=== PATIENT | male | born 1970 | race Caucasian/White ===

== ENCOUNTER 2017-04-15 08:22 | Emergency (ER) | payer SELFPAY ==
[2017-04-15] MEDS ORDERED: IPRATROPIUM/ALBUTEROL 0.5-2.5 MG/3 ML AMPUL NEB ONE (09:08)
--- NOTE | 2017-04-15 09:09 | RADIOLOGY REPORT (SQ) ---
EXAM DESCRIPTION: CHEST PA/LAT COMPLETED DATE/TIME: 04/15/2017 8:55 am REASON FOR STUDY: cough COMPARISON: October 2015 EXAM PARAMETERS: NUMBER OF VIEWS: two views TECHNIQUE: Digital Frontal and Lateral radiographic views of the chest acquired. RADIATION DOSE: NA LIMITATIONS: none FINDINGS: LUNGS AND PLEURA: No opacities, masses or pneumothorax. No pleural effusion. MEDIASTINUM AND HILAR STRUCTURES: No masses or contour abnormalities. HEART AND VASCULAR STRUCTURES: Heart normal size. No evidence for failure. BONES: No acute findings. HARDWARE: None in the chest. OTHER: No other significant finding. IMPRESSION: NO SIGNIFICANT RADIOGRAPHIC FINDING IN THE CHEST. TECHNICAL DOCUMENTATION: JOB ID: [id number] [employer]- All Rights Reserved
--- NOTE | 2017-04-15 09:47 | ER Document Report ---
ED General - General Chief Complaint: Congestion Stated Complaint: FLU LIKE SYMPTOMS Time Seen by Provider: 04/15/17 08:33 TRAVEL OUTSIDE OF THE [place] IN LAST 30 DAYS: No - HPI Patient complains to provider of: Cough congestion Notes: Patient is a smoker coming in for cough congestion ongoing for approximately 1 month. Patient states more of a wet cough with minimal production. Denies any fevers chills nausea vomiting patient states shortness of breath treatments of albuterol inhalers at home patient also states been taking [id number] cough medications. Patient upon my evaluation otherwise looks well no signs of any obvious distress. - Related Data Allergies/Adverse Reactions: naproxen [Naproxen] Allergy (Mild, Verified 01/30/15 17:40) itching Past Medical History - Social History Smoking Status: Current Every Day Smoker Chew tobacco use (# tins/day): - 59 Frequency of alcohol use: None Drug Abuse: None Family History: Reviewed & Not Pertinent, Hyperlipidemia, Other - copd Patient has suicidal ideation: No Patient has homicidal ideation: No - Past Medical History Cardiac Medical History: Reports: Hx DVT, Hx Hypercholesterolemia Pulmonary Medical History: Reports: Hx Bronchitis, Hx COPD, Hx Pneumonia Denies: Hx Tuberculosis Renal/ Medical History: Denies: Hx Peritoneal Dialysis Musculoskeltal Medical History: Reports Hx Musculoskeletal Deformity, Reports Hx Musculoskeletal Trauma Psychiatric Medical History: Reports: Hx Bipolar Disorder - mood disorder, Hx Depression Traumatic Medical History: Reports: Hx Fractures - wrist Past Surgical History: Reports: Hx Cholecystectomy - Immunizations Immunizations up to date: Yes Hx Diphtheria, Pertussis, Tetanus Vaccination: Yes Review of Systems - Review of Systems Constitutional: No symptoms reported EENT: No symptoms reported Cardiovascular: No symptoms reported Respiratory: Cough Gastrointestinal: No symptoms reported Genitourinary: No symptoms reported Male Genitourinary: No symptoms reported Musculoskeletal: No symptoms reported Skin: No symptoms reported Hematologic/Lymphatic: No symptoms reported Neurological/Psychological: No symptoms reported -: Yes All other systems reviewed and negative Physical Exam - Vital signs Vitals: Temp Pulse Resp BP Pulse Ox 98.1 F 83 18 123/72 98 04/15/17 08:26 04/15/17 08:26 04/15/17 08:26 04/15/17 08:26 04/15/17 08:26 Interpretation: Normal - General General appearance: Appears well, Alert - HEENT Head: Normocephalic, Atraumatic Eyes: Normal Pupils: PERRL - Respiratory Respiratory status: No respiratory distress Chest status: Nontender Breath sounds: Wheezing - Very faint wheezing Chest palpation: Normal - Cardiovascular Rhythm: Regular Heart sounds: Normal auscultation Murmur: No - Abdominal Inspection: Normal Distension: No distension Bowel sounds: Normal Tenderness: Nontender Organomegaly: No organomegaly - Back Back: Normal, Nontender - Extremities General upper extremity: Normal inspection, Nontender, Normal color, Normal ROM , Normal temperature General lower extremity: Normal inspection, Nontender, Normal color, Normal ROM , Normal temperature, Normal weight bearing. No: Hannah's sign - Neurological Neuro grossly intact: Yes Cognition: Normal Orientation: AAOx4 Obdulia Coma Scale Eye Opening: Spontaneous Dolliver Coma Scale Verbal: Oriented Dolliver Coma Scale Motor: Obeys Commands Obdulia Coma Scale Total: 15 Speech: Normal Motor strength normal: LUE, RUE, LLE, RLE Sensory: Normal - Psychological Associated symptoms: Normal affect, Normal mood - Skin Skin Temperature: Warm Skin Moisture: Dry Skin Color: Normal Course - Re-evaluation Re-evalutation: 04/15/17 11:24 Wheezing improved after breathing treatment. Chest x-ray is negative for pneumonia. No sign of influenza. More likely patient has a viral calls patient also was educated that cough will continue that he is a heavy smoker and that this may be due to his smoking patient was encouraged to stop smoking was given a prescription for cough medication otherwise no other intervention needed at this time will be discharged home. - Vital Signs Vital signs: Temp Pulse Resp BP Pulse Ox 97.8 F 81 20 114/68 98 04/15/17 09:56 04/15/17 09:56 04/15/17 09:56 04/15/17 09:56 04/15/17 09:56 Discharge - Discharge Clinical Impression: Chest congestion, Tobacco use Disposition: HOME, SELF-CARE Instructions: Cough Suppressant & Expectorant Medications, Stop Smoking ([facility]), Viral Syndrome ([facility]) Additional Instructions: Your chest x-ray today does not reveal any signs of pneumonia or bacterial infection that require antibiotics. People that smoke do have prolonged course with coughing and congestion due to damage to smoking dust or lungs. You can continue the Mucinex [id number] make sure you are drinking plenty water to stay hydrated. May try to cough syrup provided today to aid in cough relief. Return to ER symptoms worsen Prescriptions: Guaifenesin/Dextromethorphan [Robitussin Cough-Chest Dm Liq] 5 ml PO TID #120 liquid Forms: Smoking Cessation Education, Return to Work
[2017-04-15 09:57] VITALS: BP 114/68
== END 2017-04-15 09:57 | disposition home or self-care (01) ==
LOC: ER 08:22
DX: R09.89 Other specified symptoms and signs involving the circulatory and respiratory systems (principal); R09.81 Nasal congestion; R05 Cough; F17.200 Nicotine dependence, unspecified, uncomplicated
CPT/HCPCS: 94640; 99284; 87804; 71020; J7620